=== PATIENT | male | born 1945 | race Caucasian/White ===

== ENCOUNTER 2016-11-30 07:50 | Inpatient (IN) | payer OTHER ==
--- NOTE | 2016-11-08 09:44 | PAT Medication Instructions ---
Service Date Nov 08, 2016. Current Home Medication List Budesonide/Formoterol Fumarate (Symbicort 80/4.5 Inhaler), 2 PUFFS INH BID Cinnamon (Cinnamon Extract), 1 CAP PO BID Ergocalciferol (Vitamin D), 50,000 UNITS PO Q2WKS Furosemide (Lasix), 40 MG PO QAM Garlic (Hm Garlic), 1 TAB PO QAM Glyburide (Glyburide), 10 MG PO BID Insulin Glargine (Lantus), 15 UNITS SC QPM Lisinopril (Zestril), 2.5 MG PO HS Metformin Hcl (Glucophage), 500 MG PO QIDM Nortriptyline Hcl (Pamelor), 75 MG PO HS Omeprazole (Prilosec), 20 MG PO BID Oxycodone Ir (Roxicodone Ir), 10 MG PO Q6H PRN for Pain Rosuvastatin Calcium (Crestor), 10 MG PO HS [Fiber Gummy], 1 TAB PO BID [Glargine Insulin], 10 UNITS SC QAM [Vitamin D Gummy], 1 TAB PO BID Medication Instructions For Your Scheduled Surgery - Hold the following medications 2 weeks prior to surgery: Cinnamon (Cinnamon Extract), 1 CAP PO BID - Hold the following medications 48 hours prior to surgery: Metformin Hcl (Glucophage), 500 MG PO QIDM - Hold the following medications the morning of surgery: [Vitamin D Gummy], 1 TAB PO BID [Fiber Gummy], 1 TAB PO BID Glyburide (Glyburide), 10 MG PO BID Garlic (Hm Garlic), 1 TAB PO QAM Furosemide (Lasix), 40 MG PO QAM Ergocalciferol (Vitamin D), 50,000 UNITS PO Q2WKS - Take the following medications the morning of surgery with a sip of water: Omeprazole (Prilosec), 20 MG PO BID Budesonide/Formoterol Fumarate (Symbicort 80/4.5 Inhaler), 2 PUFFS INH BID Oxycodone Ir (Roxicodone Ir), 10 MG PO Q6H PRN for Pain (okay to take up to 4 hours prior to surgery if needed) - Hold the following medications the morning of surgery with a sip of water: Lisinopril (Zestril), 2.5 MG PO HS - Take the following medications as scheduled the night before surgery: [Vitamin D Gummy], 1 TAB PO BID Insulin Glargine (Lantus), 15 UNITS SC QPM [Fiber Gummy], 1 TAB PO BID Glyburide (Glyburide), 10 MG PO BID Nortriptyline Hcl (Pamelor), 75 MG PO HS Omeprazole (Prilosec), 20 MG PO BID Rosuvastatin Calcium (Crestor), 10 MG PO HS Oxycodone Ir (Roxicodone Ir), 10 MG PO Q6H PRN for Pain Budesonide/Formoterol Fumarate (Symbicort 80/4.5 Inhaler), 2 PUFFS INH BID - For Insulin Dependent Diabetic patients: Test blood sugar A.M. of surgery. - If blood sugar greater than 150, take half of your regular dose of: [ Glargine Insulin],take 5 units - If blood sugar less than 150, do not take any: [Glargine Insulin], 10 UNITS SC QAM If you have any questions please call us at [phone] (Isidra Mistry PA-C) or [phone] or [phone]
[2016-11-08 10:42] LABS: BASO % 0.3 %; BASO ABS # 0.02 K/uL (0-0.2); COMPLETE YES; HEMATOCRIT 38.7 % (42-52); IG% 0.1 %; LYMPH % 20.8 %; LYMPH ABS # 1.56 K/uL (1.2-3.4); MEAN CELL VOLUME 87.8 fL (80-100); MEAN CORPUSCULAR HEMOGLOBIN 30.2 pg (25-34); MEAN CORPUSCULAR HGB CONC 34.4 g/dl (32-36); MEAN PLATELET VOLUME 9.9 fL (7.4-10.4); MONO % 6.7 %; NEUT % 70.1 %; PLATELET COUNT 271 K/uL (130-400); RED BLOOD COUNT 4.41 M/uL (4.7-6.1); WHITE BLOOD COUNT 7.49 K/uL (4.8-10.8)
[2016-11-08 11:27] LABS: BLOOD UREA NITROGEN 17 mg/dl (7-18); BUN/CREATININE RATIO 13.9 (10-20); CALCIUM 9.4 mg/dl (8.5-10.1); CARBON DIOXIDE 29 mmol/L (21-32); CHLORIDE 103 mmol/L (98-107); GLUCOSE 148 mg/dl (70-99); POTASSIUM 4.1 mmol/L (3.5-5.1); SODIUM 140 mmol/L (136-145)
--- NOTE | 2016-11-24 10:13 | HISTORY & PHYSICAL EXAMINATION ---
DATE OF ADMISSION: 11/30/2016 The patient presents to our office with a complaint of chronic back pain. He is status post lumbar decompression and fusion L4-S1 [place] [address] Delatorre. He reports he has been declining over the past year. Shopping will trigger his legs to go numb. Sitting alleviates his symptoms. Denies bowel or bladder dysfunction. There is no specific pain pattern. He occasionally ambulates with a cane. He also reports he has neuropathy that affects both feet. He takes hydrocodone and Neurontin for pain control. MEDICAL HISTORY: Significant for rheumatoid arthritis, osteoarthritis, sleep apnea, bleeding disorders, diabetes, peptic ulcer disease. SURGICAL HISTORY: Significant for hernia repair and spine surgery by Dr. Delatorre 2011. ALLERGIES: None listed. CURRENT MEDICATIONS: Include hydrocodone p.r.n., cyclobenzaprine 10 mg q. 8 hours p.r.n., furosemide 40 mg a day, glyburide 5 mg 2 tablets twice a day, lisinopril 5 mg twice a day, metformin 500 mg twice a day, nortriptyline 75 mg daily, omeprazole 20 mg twice a day, rosuvastatin 10 mg half a tablet daily, aspirin 81 mg daily, cod liver oil daily. SOCIAL HISTORY: He is . He is on disability. Alcohol is several cans of beer a day tobacco, he quit in 1983. REVIEW OF SYSTEMS: Significant for fatigue, weakness, weight loss, leg swelling, heat intolerance, poor coordination, difficulty walking, muscle weakness, frequent urination. PHYSICAL EXAMINATION: VITAL SIGNS: 5 foot 8, 225 pounds. HEENT: Speech appropriate. CARDIOPULMONARY: No gross abnormalities. ABDOMEN: Soft and nondistended. GENITOURINARY: Deferred. NEUROLOGIC: Cranial nerves II-XII grossly intact. MUSCULOSKELETAL: He has a well-healed lumbar incision. He ambulates with a stooped but steady gait. Lumbar extension reproduces back pain. Strength is intact bilateral lower extremities. No ankle clonus. Negative Babinski. ASSESSMENT: Foraminal stenosis L2-3, L3-4, possible facet cyst on the right at L2-3, severe central stenosis L3-4. PLAN: At this point in time, we have reviewed surgical intervention which would require removal of instrumentation L4-5, L5-S1; lumbar decompression of L2-3, L3-4, instrumented fusion of L2 through 4, possibly extending it down to S1. Risks, benefits, pros, cons, and alternatives were outlined in detail. He would like to proceed with the above-mentioned surgical intervention.
[2016-11-25 16:29] VITALS: BMI 33.0
[~2016-11-30] VITALS: Ht 175.3 cm; Wt 101.0 kg
[2016-11-30] VITALS (9 sets, daily range): BP systolic 95–135; BP diastolic 61–79; PULSE 83–91; TEMP 36.5–37; O2SAT 93–99; BMI 32.0
--- NOTE | 2016-11-30 07:35 | History & Physical Bridge Note ---
H&P Re-Evaluation Bridge Note: I have examined the patient, reviewed the History & Physical and in the interval since the performance of the History & Physical I have noted the following changes of clinical significance: No changes noted
[~2016-11-30 07:50] MED LIST: CEFAZOLIN 1000MG/55 ML D5W IV SCH; CINN500C13 PO; CRS/10 PO; FIBER GUMMY PO; FURO40TA3 PO; GARL1TAB13 PO; GLARGINE INSULIN SC; GLC/500 PO; INSDGI SC; LACTATED RINGER'S 1000ML 1,000 ML IV SCH; LISI-729 PO; MCR5 PO; NORT75CA PO; OMEP10CA2 PO; OXYC1TAB3 PO; SYMIN/8045 INH; VITAMIN D GUMMY PO; VTMD PO
[2016-11-30] MEDS ORDERED: GLYCOPYRROLATE INJ 0.2 MG/ML VIAL ONE ×2 (08:44→12:51)
[2016-11-30] MEDS ORDERED: DEXAMETHASONE SOD INJ 4 MG/ML VIAL ONE (08:44)
[2016-11-30] MEDS ORDERED: PROPOFOL IV EMULSION 10 MG/ML 20 ML VIAL IV ONE ×2 (08:44→12:51)
[2016-11-30] MEDS ORDERED: NEOSTIGMINE METHYLSULFATE 1 MG/ML 10ML VIAL ONE (08:44)
[2016-11-30] MEDS ORDERED: ROCURONIUM BROMIDE 10 MG/ML 5 ML VIAL ONE (08:44)
[2016-11-30] MEDS ORDERED: ONDANSETRON INJ 2 MG/ML 2 ML VIAL ONE (08:44)
[2016-11-30] MEDS ORDERED: LIDOCAINE HCL 2% 2 ML VIAL (20MG/ML) ONE (08:44)
[2016-11-30] MEDS ORDERED: albuterol inhaler INH (08:45)
[2016-11-30] MEDS ORDERED: MIDAZOLAM HCL 1 MG/ML 2ML VIAL ONE (08:45)
[2016-11-30] MEDS ORDERED: FENTANYL CITRATE INJ 50 MCG/1 ML 2 ML VIAL ONE (08:45)
[2016-11-30] MEDS ORDERED: LACTATED RINGER'S 1000ML 1,000 ML IV PRN (10:10)
[2016-11-30] MEDS ORDERED: ONDANSETRON INJ 2 MG/ML 2 ML VIAL IV PRN ×2 (10:15→13:00)
[2016-11-30] MEDS ORDERED: MoRPHine SULFATE 10 MG/ML CARP/VIAL IV PRN (10:15)
[2016-11-30] MEDS ORDERED: SODIUM CHLORIDE 0.9% 1000ML 1,000 ML IV SCH (12:52)
--- NOTE | 2016-11-30 12:52 | [facility] Post Operative Brief Note ---
Immediate Operative Summary Operative Date Nov 30, 2016. Pre-Operative Diagnosis Foraminal stenosis L2-3, L3-4, possible facet cyst on the right at L2-3, severe central stenosis L3-4. Post-Operative Diagnosis Foraminal stenosis L2-3, L3-4, possible facet cyst on the right at L2-3, severe central stenosis L3-4. Procedure(s) Performed L4-L5, L5-S1 Removal of Retained Hardware; Revision Lumbar Decompression/Laminectomy Decompression L2-L3, L3-L4 Fusion L2-L4; Pedicle Screw Fixation; Placement of an Interbody Device; Bone Graft Application Allograft in the Lateral Gutters; Bone Morphogenetic Protein Application Surgeon Dr. Hector Delatorre Emt Dispatcher Surgeon(s) Supriya Montesinos PA-C Estimated Blood Loss 600mL Findings stenosis Specimens Specimen A. Explanted spine hardware
[2016-11-30] MEDS ORDERED: FLOSEAL HEMOSTATIC MATRIX 10ML TOP ONE (12:54)
[2016-11-30] MEDS ORDERED: BACITRACIN 50000 UNIT VIAL IR ONE (12:54)
[2016-11-30] MEDS ORDERED: BUPIVACAINE/EPINEPHRINE 0.5% MPF 1:200,000 30 ML VIAL INJ ONE (12:54)
[2016-11-30] MEDS ORDERED: THROMBIN 20,000 UNITS (RECOMBINANT) TOP ONE (12:56)
[2016-11-30] MEDS ORDERED: DO NOT ADMINISTER PNEUMOCOCCAL VACCINE PRN ×2 (13:00)
[2016-11-30] MEDS ORDERED: DO NOT ADMINISTER FLU VACCINE PRN ×3 (13:00)
[2016-11-30] MEDS ORDERED: PROMETHAZINE HCL INJ 12.5 MG in SODIUM CHLORIDE 0.9% 50ML 50 ML IV PRN (13:00)
[2016-11-30] MEDS ORDERED: LORAZEPAM INJ 0.5 MG in SYRINGE 0 ML IV PRN (13:00)
[2016-11-30] MEDS ORDERED: MAGNESIUM HYDROXIDE SUSP 30 ML UDC PO PRN (13:00)
[2016-11-30] MEDS ORDERED: NALOXONE HCL 0.4 MG/1 ML VIAL/CARP IV PRN ×2 (13:00)
[2016-11-30] MEDS ORDERED: SOD PHOSPHATE/SOD BIPHOSPHATE ENEMA 132 ML BTL PR PRN (13:00)
[2016-11-30] MEDS ORDERED: BISACODYL 10 MG SUPP PR PRN (13:00)
[2016-11-30] MEDS ORDERED: ACETAMINOPHEN IV 100 ML IV PRN (13:00)
[2016-11-30] MEDS ORDERED: LORAZEPAM 0.5 MG TAB PO PRN (13:00)
[2016-11-30] MEDS ORDERED: hydrOXYzine HCL 25 MG TAB PO PRN (13:00)
[2016-11-30] MEDS ORDERED: ALUMINUM/MAGNESIUM SUSP 30 ML UDC PO PRN (13:00)
[2016-11-30] MEDS ORDERED: ACETAMINOPHEN 500 MG TAB PO PRN (13:00)
[2016-11-30] MEDS ORDERED: METOCLOPRAMIDE HCL INJ 5 MG/ML 2 ML VIAL IV PRN (13:00)
[2016-11-30] MEDS ORDERED: FAMOTIDINE 20 MG TAB PO PRN (13:00)
--- NOTE | 2016-11-30 13:02 | DIAGNOSTIC IMAGING REPORT ---
INTRAOPERATIVE FLUOROSCOPIC IMAGES OF THE LUMBAR SPINE CLINICAL HISTORY: REMOVAL OF HARDWARE/DECOMPRESSION/FUSION/INTERBODY COMPARISON STUDY: Fluoroscopic images of the lumbar spine September 10, 2012. Fluoroscopy time: 10 seconds. FINDINGS: 2 fluoroscopic images were obtained. Localization is not possible given partial visualization of the lumbar spine. A decompression with 3 level pedicle screw fusion is noted with interconnecting rods. IMPRESSION: Fluoroscopic images demonstrating a lumbar spine decompression and fusion. Electronically signed by: Gene Hutchison M.D. 11/30/2016 1:00 PM Dictated Date/Time: 11/30/2016 12:59 PM
--- NOTE | 2016-11-30 13:08 | OPERATIVE REPORT ---
DATE OF OPERATION: 11/30/2016 PREOPERATIVE DIAGNOSIS: Spinal stenosis. POSTOPERATIVE DIAGNOSIS: Same. PROCEDURE PERFORMED: 1. Removal of posterior segmental instrumentation L4-L5 and L5-S1. 2. Exploration of fusion L4-L5 and L5-S1. 3. Lumbar decompression, medial facetectomies, foraminotomies L2-L3, L3-L4. 4. Posterior spinal fusion L2-3, L3-4. 5. Placement of posterior segmental instrumentation using Orthros rods and screws L2-L3, L3-L4. 6. Placement of locally harvested morselized autograft posterior gutters. 7. Placement of Infuse collagen sponge combined with Mastergraft in the posterior gutters L2-L3, L3-L4. SURGEON: Dr. Hector Delatorre. DIRECTOR OF TAX SERVICES: Supriya Varela PA-C. Due to the complex nature of the procedure, the entire surgery was performed with the spa assistant manager of Supriya Varela PA-C. The physician assistant psychiatry, under direct supervision, was involved in the actual performance of all aspects of the surgical procedure including hemostasis, tissue retraction and incision, instrument management, patient positioning, and wound closure. ANESTHESIA: General. DISPOSITION: The patient awakened and taken to PACU in stable condition. HISTORY OF PATIENT'S PROBLEMS: This is a 71-year-old male that presents with the above-mentioned diagnosis. After failing an extensive course of nonoperative care, elected to undergo the above-mentioned procedure. Risks, benefits, pros, cons, and alternatives were outlined in detail preoperatively. OPERATION AND FINDINGS: PROCEDURE: The patient was met with preoperatively, case discussed and all questions were addressed. At that point the patient was taken back to operative suite and after undergoing successful general endotracheal intubation by department of anesthesia was placed in prone position on Xavier table atop Negro frame. All bony prominences were padded and the eyes were inspected to ensure there was no external pressure placed upon them. At this point, lumbar spine was prepped and draped in normal sterile fashion. Sharp dissection with the assistance of Bovie cautery performed down to and exposing the lamina and transverse processes of 2, 3, instrumentation at the 4, 5 and S1 levels bilaterally. I then removed the hardware bilaterally exploring the fusion mass noting it to be intact. I then performed a complete laminectomy of 3 and 2 addressing severe lateral recess and foraminal stenosis. Pedicle screws were then placed in L2, 3, and 4 bilaterally with assistance of fluoroscopy and appropriate size jerrell locked into position. The transverse processes of 2, 3, 4 burred to subcortical bone. Infuse collagen sponge combined with Mastergraft and locally harvested morcellized autograft was placed in the posterior gutters. A 7 flat RAY drain was inserted. Incision was closed with 1-0 Vicryl in the fascia, 2-0 Vicryl subcutaneously, 4-0 Monocryl for final skin closure. Steri-Strips and sterile dressing placed. I attest to the content of the Intraoperative Record and any orders documented therein. Any exceptio ns are noted below.
[2016-11-30] MEDS ORDERED: HYDROmorphone HCL 0.5MG/ML 50 ML CASSETTE ONE (13:18)
[2016-11-30] MEDS ORDERED: PHARMACY GLYCEMIC MGMT CONSULT PRN (13:32)
[2016-11-30] MEDS: FENTANYL CITRATE INJ 50 MCG/1 ML 2 ML VIAL IV PRN ×4 (13:33→13:48)
[2016-11-30] MEDS ORDERED: DEXTROSE 50% 50 ML SYR IV PRN (14:00)
[2016-11-30] MEDS ORDERED: GLUCOSE 10 TABS/TUBE PO PRN (14:00)
[2016-11-30] MEDS ORDERED: GLUCAGON FOR INJ 1 MG VIAL SQ PRN (14:00)
[2016-11-30] MEDS ORDERED: GLUCOSE 40% GEL 15 GM TUBE PO PRN (14:00)
--- NOTE | 2016-11-30 14:19 | Pharmacy Progress Note ---
Glycemic Control Intl Consult Date of Service Nov 30, 2016. Scope Glycemic Pharmacist consulted by Dr Delatorre on 11/30/16 for glycemic control and to write orders per [facility] inpatient glycemic control protocol Objective Weight (Kilograms): 101.00 Accuchecks BSG (last 24hrs): Test 11/30/16 09:10 11/30/16 13:37 Bedside Glucose 129 mg/dl (70-99) 178 mg/dl (70-99) HbA1c pending 12/01/16 Recent Pertinent Medications Outpatient Anti-diabetic Regimen: * Lantus 15 units hs, glyburide 10 mg bid, metformin 500 mg qidm * A1c = pending 12/01/16 The patient is currently receiving: * Basal insulin: Lantus 10 units at home yesterday evening * Correctional Insulin: none * Prandial insulin: none * Oral Agents: glyburide 10 mg bid Risk Factors for Insulin Resistance: * Steroids: dexamethasone 8 mg in OR @0845, then 6 mg q8h x 3 doses * Infection: no, cefazolin perioperatively * Pressors: no * IVF: LR @ 150 ml/hr * Recent Surgery: OR today-spinal surgery * Diet: npo, advancing to regular- change to type 2 diabetic * Mechanical Ventilation: no Assessment & Plan ASSESSMENT: * ADA & AACE recommend a goal blood sugar range 140-180 mg/dl for the majority of critically ill & non-critically ill patients. However, more stringent targets may be selected in individual cases. * 71 yo type 2 diabetic S/P spinal surgery. A1c pending to assess recent glycemic control. BSG's expected to rise due to stress of surgery and perioperative steroids. Effect of dexamethasone may persist for 48-72 hr. Will hold po antidiabetic meds, start Lantus at 20% less than home dose, and add weight-based Novolog coverage. Change diet to type 2 diabetic. PLAN FOR INPATIENT GLYCEMIC CONTROL: * Holding outpatient oral diabetes medications * Basal insulin with LANTUS 12 units SQ hs, give 1/2 dose (6 units) if BSG is less than 110 * Correctional Insulin with NOVOLOG per scale ACHS or Q6hrs while NPO * Goal Range: Low 110 mg/dL - High 150 mg/dL * Correction Factor: 25 mg/dL/unit * Nutritional / Prandial insulin per carb ratio of 1 unit per 8 grams CHO consumed * Please note that the plan above was derived based on current level of insulin resistance and hospital stress. These recommendations are appropriate for inpatient admission only. Plan of care upon discharge will need to be reassessed to avoid potential outpatient hypo/hyperglycemia. Thank you.
[2016-11-30] MEDS: HYDROmorphone HCL 0.5MG/ML 50 ML CASSETTE IV PRN ×3 (14:26→22:58)
--- NOTE | 2016-11-30 15:24 | Anesthesiology Progress Note ---
Anesthesia Post Op Note Date & Time Nov 30, 2016 at 15:23 Vital Signs Pain Intensity: 0.0 Vital Signs Past 12 Hours Date Time Temp Pulse Resp B/P Pulse Ox O2 Delivery O2 Flow Rate FiO2 11/30/16 15:19 36.5 86 18 108/66 97 Nasal Cannula 3.0 11/30/16 14:50 84 16 122/75 95 Nasal Cannula 3.0 11/30/16 14:47 95 Nasal Cannula 4.0 11/30/16 14:20 95 Nasal Cannula 4.0 11/30/16 14:20 36.7 91 18 114/71 95 Nasal Cannula 4.0 11/30/16 14:20 36.7 91 16 114/71 95 Nasal Cannula 3.0 11/30/16 14:10 87 16 97 11/30/16 14:10 87 16 11/30/16 14:08 126/65 11/30/16 14:05 87 15 11/30/16 14:05 87 15 97 11/30/16 14:03 116/67 11/30/16 14:00 85 14 97 11/30/16 14:00 86 14 11/30/16 13:58 128/68 11/30/16 13:55 84 7 11/30/16 13:55 84 7 96 11/30/16 13:54 36.5 11/30/16 13:51 85 16 99 11/30/16 13:51 85 16 11/30/16 13:49 109/72 11/30/16 13:46 81 13 100 11/30/16 13:46 81 13 11/30/16 13:43 121/64 11/30/16 13:41 83 14 100 11/30/16 13:41 83 14 11/30/16 13:38 122/70 11/30/16 13:36 86 17 100 11/30/16 13:36 86 17 11/30/16 13:33 116/66 11/30/16 13:31 86 16 11/30/16 13:31 86 16 100 11/30/16 13:29 109/26 11/30/16 13:26 88 15 11/30/16 13:26 88 15 100 11/30/16 13:25 108/60 11/30/16 13:16 79 16 91/37 100 Mask 10 11/30/16 08:25 36.8 83 20 135/79 99 Room Air Notes Mental Status: alert / awake / arousable, participated in evaluation Pt Amnestic to Procedure: Yes Nausea / Vomiting: adequately controlled Pain: adequately controlled Airway Patency, RR, SpO2: stable & adequate BP & HR: stable & adequate Hydration State: stable & adequate Anesthetic Complications: no major complications apparent
[2016-11-30] MEDS: LACTATED RINGER'S 1000ML 1,000 ML IV SCH ×2 (16:17→20:13)
[2016-11-30] MEDS: CEFAZOLIN IV 2,000 MG in DEXTROSE 5% 50ML 50 ML IV SCH (17:45)
[2016-11-30] MEDS: DEXAMETHASONE INJ 6 MG in SYRINGE 0 ML IV SCH (17:45)
[2016-11-30] MEDS: INSULIN ASPART 100 UNITS/ML 3 ML PEN SC SCH ×2 (17:50→20:38)
[2016-11-30] MEDS: BUDESONIDE/FORMOTEROL FUMARATE 80/4.5 60 PUFFS/INHALER INH SCH (20:31)
[2016-11-30] MEDS: NORTRIPTYLINE HCL 25 MG CAP PO SCH (20:32)
[2016-11-30] MEDS: ROSUVASTATIN CALCIUM 10 MG TAB PO SCH (20:32)
[2016-11-30] MEDS: PANTOprazole SOD 40 MG TAB PO SCH (20:32)
[2016-11-30] MEDS: LISINOPRIL 2.5 MG TAB PO SCH (20:32)
[2016-11-30] MEDS: DOCUSATE SODIUM/SENNA 50/8.6MG TAB PO SCH (20:33)
[2016-11-30] MEDS: INSULIN GLARGINE SOLOSTAR 100 UNITS/ML 3 ML PEN SC SCH (20:39)
[2016-12-01] VITALS (7 sets, daily range): BP systolic 106–127; BP diastolic 66–72; PULSE 82–102; TEMP 36.3–37; O2SAT 92–95
[2016-12-01] MEDS: DEXAMETHASONE INJ 6 MG in SYRINGE 0 ML IV SCH ×2 (02:02→09:46)
[2016-12-01] MEDS: CEFAZOLIN IV 2,000 MG in DEXTROSE 5% 50ML 50 ML IV SCH (02:02)
[2016-12-01] MEDS: LACTATED RINGER'S 1000ML 1,000 ML IV SCH (02:03)
[2016-12-01 05:49] LABS: BASO % 0.1 %; BASO ABS # 0.01 K/uL (0-0.2); HEMATOCRIT 25.6 % (42-52); IG% 0.4 %; LYMPH % 4.2 %; LYMPH ABS # 0.48 K/uL (1.2-3.4); MEAN CELL VOLUME 86.8 fL (80-100); MEAN CORPUSCULAR HEMOGLOBIN 29.5 pg (25-34); MEAN PLATELET VOLUME 9.2 fL (7.4-10.4); MONO % 4.3 %; PLATELET COUNT 298 K/uL (130-400); RED BLOOD COUNT 2.95 M/uL (4.7-6.1); WHITE BLOOD COUNT 11.41 K/uL (4.8-10.8)
[2016-12-01] MEDS ORDERED: DC PCA SCH (06:00)
[2016-12-01] MEDS ORDERED: HYDROmorphone INJ 0.5 MG/0.5 ML SYR IV PRN (06:00)
[2016-12-01 06:15] LABS: CALCIUM 8.4 mg/dl (8.5-10.1); CREATININE 1.2 mg/dl (0.60-1.40); POTASSIUM 4.7 mmol/L (3.5-5.1)
[2016-12-01 06:23] LABS: COMPLETE YES
[2016-12-01 06:40] LABS: ESTIMATED AVERAGE GLUCOSE 151 mg/dl; HA1C FLAG Normal (Normal)
[2016-12-01] MEDS ORDERED: NURSING VERBAL MED ORDER ONE (07:15)
--- NOTE | 2016-12-01 07:52 | Anesthesiology Progress Note ---
Anesthesia Post Op Note Date & Time Dec 01, 2016 at 07:51 Vital Signs Pain Intensity: 4.0 Vital Signs Past 12 Hours Date Time Temp Pulse Resp B/P Pulse Ox O2 Delivery O2 Flow Rate FiO2 12/01/16 06:58 36.7 91 16 106/69 92 Room Air 12/01/16 03:48 37.0 84 16 111/66 92 Room Air 11/30/16 23:30 Nasal Cannula 2.0 11/30/16 23:17 37.0 85 16 120/72 93 Room Air Notes Mental Status: alert / awake / arousable, participated in evaluation Pt Amnestic to Procedure: Yes Nausea / Vomiting: adequately controlled Pain: adequately controlled Airway Patency, RR, SpO2: stable & adequate BP & HR: stable & adequate Hydration State: stable & adequate Anesthetic Complications: no major complications apparent
--- NOTE | 2016-12-01 08:35 | PROGRESS NOTE ---
DATE: 12/01/2016 Postop day 1. Back pain controlled. Leg pain improved. Vital signs stable. T-max 37.0. RAY drained 190 mL. Hematocrit this a.m. is 25.6. PHYSICAL EXAMINATION: The patient is sitting in bed, has good strength to testing. Appears comfortable. ASSESSMENT: Status post lumbar decompression and fusion. PLAN: At this time, will initiate physical therapy, advance his bowel regimen and hopefully discharge home this weekend.
[2016-12-01] MEDS: BUDESONIDE/FORMOTEROL FUMARATE 80/4.5 60 PUFFS/INHALER INH SCH ×2 (08:40→21:36)
[2016-12-01] MEDS: PANTOprazole SOD 40 MG TAB PO SCH ×2 (08:40→22:02)
[2016-12-01] MEDS: INSULIN ASPART 100 UNITS/ML 3 ML PEN SC SCH ×3 (09:06→21:35)
--- NOTE | 2016-12-01 09:14 | Clinical Documentation Query ---
JAMIE Camacho : CLINICAL DOCUMENTATION QUERY Patient is a 71 year old male who on 11/30 underwent removal of prior lumbosacral instrumentation, decompression, and posterior fusion of L2-3, L3-4. Preoperative hemoglobin and hematocrit were 13.3 g/dl and 38.7%. POD #1, repeat values are 8.7 g/dl and 25.6%. EBL for the procedure was 600 ml's with subsequently documented losses totaling an additional 440 ml's to date. Additionally, net I/O is positive for 1473 ml's to date. She is being monitored with serial hematology and I/O including drain outputs. In your clinical opinion is this patient being managed for: ( ) Acute blood loss and hemodilutional anemia ( ) Other explanation of clinical findings (Please Explain) ( ) Unable to determine (Please Define) ( ) Need to Discuss ( ) Not Agree The medical record reflects the following clinical findings, treatment, and risk factors. Clinical Indicators: As above Treatment:She is being monitored with serial hematology and I/O including drain outputs. Risk Factors: Acute perioperative blood losses, IVF administration Please clarify and document your clinical opinion in the progress notes and discharge summary. Terms such as "probable", "suspected", "likely", "questionable", "possible", or "still to be ruled out" are acceptable. IF IN AGREEMENT, YOU MUST DOCUMENT ABOVE DIAGNOSTIC STATEMENT IN DAILY PROGRESS NOTES AND DISCHARGE SUMMARY. This document is not part of the patient's record. Thank You, Lev Rodriguez, ASHLEY [phone]
[2016-12-01] MEDS ORDERED: INSULIN ASPART 100 UNITS/ML 3 ML PEN SC ONE ×2 (12:00→12:30)
--- NOTE | 2016-12-01 12:51 | Pharmacy Progress Note ---
Glycemic Control: Progress Nt Date of Service Dec 01, 2016. Scope Glycemic Pharmacist consulted by Dr Delatorre on 11/30/16 for glycemic control and to write orders per [facility] inpatient glycemic control protocol. Objective Accuchecks BSG (last 24hrs): Test 11/30/16 13:37 11/30/16 16:50 11/30/16 20:26 12/01/16 05:30 Bedside Glucose 178 mg/dl (70-99) 234 mg/dl (70-99) 252 mg/dl (70-99) Random Glucose 244 mg/dl (70-99) Laboratory Data (last 24hrs) Test 12/01/16 05:30 12/01/16 05:35 Anion Gap 9.0 mmol/L BUN/Creatinine Ratio 13.0 Blood Urea Nitrogen 16 mg/dl Creatinine 1.20 mg/dl Hemoglobin A1c 6.9 % Potassium Level 4.7 mmol/L Sodium Level 136 mmol/L White Blood Count 11.41 K/uL Red Blood Count 2.95 M/uL Hemoglobin 8.7 g/dL Hematocrit 25.6 % Mean Corpuscular Volume 86.8 fL Mean Corpuscular Hemoglobin 29.5 pg Mean Corpuscular Hemoglobin Concent 34.0 g/dl Platelet Count 298 K/uL Mean Platelet Volume 9.2 fL Neutrophils (%) (Auto) 91.0 % Lymphocytes (%) (Auto) 4.2 % Monocytes (%) (Auto) 4.3 % Eosinophils (%) (Auto) 0.0 % Basophils (%) (Auto) 0.1 % Neutrophils # (Auto) 10.39 K/uL Lymphocytes # (Auto) 0.48 K/uL Monocytes # (Auto) 0.49 K/uL Eosinophils # (Auto) 0.00 K/uL Basophils # (Auto) 0.01 K/uL HbA1c: Test 12/01/16 05:30 Hemoglobin A1c 6.9 % (4.5-5.6) H Recent Pertinent Medications Outpatient Anti-diabetic Regimen: * Lantus 15 units hs, glyburide 10 mg bid, metformin 500 mg qidm * A1c = 6.9% 12/01/16 The patient is currently receiving: * Basal insulin: Lantus 12 units hs, give 1/2 dose if BSG is less than 110 * Correctional Insulin: Novolog per protocol ACHS Goal range 110-150 mg/dl Correction factor 25 mg/dl/unit * Prandial insulin: per carb ratio of 1 unit per 8 Gm CHO consumed * Oral Agents: none Risk Factors for Insulin Resistance: * Steroids: dexamethasone 8 mg in OR 11/30 @0845, then 6 mg q8h x 3 doses, last dose given 12/01 @0946 * Infection: no * IVF: LR @ 150 ml/hr- now dc'd * Recent Surgery: POD#1-spinal surgery * Diet: type 2 diabetic Assessment & Plan ASSESSMENT: * ADA & AACE recommend a goal blood sugar range 140-180 mg/dl for the majority of critically ill & non-critically ill patients. However, more stringent targets may be selected in individual cases. 11/30/16 * 71 yo type 2 diabetic S/P spinal surgery. A1c pending to assess recent glycemic control. BSG's expected to rise due to stress of surgery and perioperative steroids. Effect of dexamethasone may persist for 48-72 hr. Will hold po antidiabetic meds, start Lantus at 20% less than home dose, and add weight-based Novolog coverage. Change diet to type 2 diabetic. 12/01/16 * Patient received 27 units of insulin on 11/30. BSG's ranged 234-386 over past 24 hr. -high mainly due to steroid. Patient well-controlled past few months ( A1c 6.9%) on Lantus and oral meds, so do not want to give large doses of insulin. Stacking may lead to lower BSG at suppertime. Will tighten carb ratio slightly, and give extra IV insulin bolus if BSG is still over 250 at pre- supper check. Will reassess in am. PLAN FOR INPATIENT GLYCEMIC CONTROL: * Basal insulin with LANTUS 12 units SQ hs, give 1/2 dose (6 units) if BSG is less than 110 * Correctional Insulin with NOVOLOG per scale ACHS or Q6hrs while NPO * Goal Range: Low 110 mg/dL - High 150 mg/dL * Correction Factor: 25 mg/dL/unit * Nutritional / Prandial insulin per carb ratio of 1 unit per 7 grams CHO consumed * Please note that the plan above was derived based on current level of insulin resistance and hospital stress. These recommendations are appropriate for inpatient admission only. Plan of care upon discharge will need to be reassessed to avoid potential outpatient hypo/hyperglycemia. Thank you.
[2016-12-01] MEDS ORDERED: INSULIN HUMAN REGULAR IV BOLUS 3 UNIT in SYRINGE 0 ML IV ONE (17:15)
[2016-12-01] MEDS: INSULIN GLARGINE SOLOSTAR 100 UNITS/ML 3 ML PEN SC SCH (21:34)
[2016-12-01] MEDS: ROSUVASTATIN CALCIUM 10 MG TAB PO SCH (22:02)
[2016-12-01] MEDS: DOCUSATE SODIUM/SENNA 50/8.6MG TAB PO SCH (22:02)
[2016-12-01] MEDS: NORTRIPTYLINE HCL 25 MG CAP PO SCH (22:02)
[2016-12-01] MEDS: LISINOPRIL 2.5 MG TAB PO SCH (22:03)
[2016-12-02] MEDS: POLYETHYLENE (MIRALAX) 17 GM PACK PO SCH ×4 (05:50→23:45)
[2016-12-02] MEDS: OXYCODONE HCL IR 5 MG TAB (IMMEDIATE RELEASE) PO PRN ×3 (05:51→17:24)
[2016-12-02 06:19] VITALS: BP 119/73; PULSE 68; TEMP 36.6; O2SAT 97
[2016-12-02] MEDS: PANTOprazole SOD 40 MG TAB PO SCH ×2 (06:49→20:52)
[2016-12-02] MEDS: BUDESONIDE/FORMOTEROL FUMARATE 80/4.5 60 PUFFS/INHALER INH SCH ×2 (06:49→20:53)
[2016-12-02] MEDS: INSULIN ASPART 100 UNITS/ML 3 ML PEN SC SCH ×4 (07:39→20:57)
[2016-12-02] MEDS ORDERED: RXC5 PO (07:50)
--- NOTE | 2016-12-02 07:51 | Discharge Instructions ---
Discharge Instructions Admission Reason for Admission: Lumbar Spinal Stenosis Discharge Discharge Diagnosis / Problem: stenosis Discharge Goals Goal(s): Improve function Activity Recommendations Activity Limitations: per Instructions/Follow-up section . Instructions / Follow-Up Instructions / Follow-Up ACTIVITY RECOMMENDATIONS: SELF CARE INSTRUCTIONS AFTER THORACIC/LUMBAR FUSIONS 1. You may walk to your tolerance. It is good exercise for your legs and back. Expect some back and intermittent leg aches and pains. 2. You may perform "counter-top" level activities (make a sandwich, sally with a project, etc.). 3. No bending or lifting of more than 10 pounds or back twisting of any nature (roll like a log when turning in bed). 4. You may ride in a car for 20-30 minutes at a time. No driving until after your first visit with your doctor. 5. Frequent changes of position and restricting sitting to 30 minutes at a time will help limit the amount of back spasms and stiffness you may experience. 6. You may discontinue the use of ambulatory aids (cane, crutches, etc.) once your strength and confidence allow. 7. You may watchstander the shower and let water strike your incision when you arrive home at least once daily. Do not take a tub bath, sit in a hot tub or go into a swimming pool until after your first recheck in the office. SPECIAL CARE INSTRUCTIONS: VERY IMPORTANT TO READ AND REVIEW A. Your surgical incision has been closed with a cosmetic suture under the skin that will dissolve in about 6 weeks. In 14 days, you can use a pair of clean scissors and cut the suture that is left outside of the skin at the ends of your incision. 1. The small skin tapes can be removed 7 days after surgery if they have not fallen off by that point. 2. You may keep the wound open to air as much as possible to promote healing after post-op day number 5 unless told otherwise by your doctor. 3. If you think the wound looks like it is becoming infected (redness or worsening drainage) and/or you are experiencing fever, chill or worsening back pain and muscle spasms, contact the office so that we may evaluate you as soon as possible. B. Complications are uncommon, but please contact us if you have any signs or symptoms of: 1. wound infection (fever higher than 102.5 degrees F, redness, separation of wound, drainage, or increasing pain from the incision) 2. blood clots in legs (pain, swelling, redness and warmth in legs) 3. urinary tract infection (fever higher than 102.5 degrees F, burning upon urination or increased frequency of urination) 4. nerve problems (inability to walk on your toes or heels, numbness, loss of bowel or bladder control) 5. any other symptoms that concern you C. Please call the office at if you have any concerns or questions about your operation or recovery. D. No smoking! Smoking drastically decreases the chance of a solid fusion. E. Do not take any anti-inflammatory medications (Indocin, Advil, Motrin, Aspirin, Naprosyn, etc.) as these may inhibit the chance of a solid fusion. Tylenol is okay to take for pain. MANAGING PAIN AFTER SPINAL SURGERY 1. Narcotic medication is intended for short-term use and will be provided for surgical pain. Surgical pain usually lasts for a period of 4-6 weeks. Narcotic medication includes Percocet, Vicodin, Darvocet, Tylenol #3 or Lortab. 2. Longer-term pain is more appropriately treated with non-narcotic medication such as Tylenol ES. 3. Muscle spasm is not appropriately treated with narcotics. Muscle relaxers such as Soma, Flexeril or Skelaxin can be used along with Tylenol ES. 4. Remember that we all live with some "aches and pains". This is not unusual or uncommon after an injury or as we get older. a. Back pain is expected and may include muscle spasms for 4 to 6 weeks after surgery. The pain should gradually improve. If the pain worsens for no apparent reason, please contact the office. b. Intermittent leg pain may also be experienced and should not be concerned about unless it worsens for no apparent reason. If so, please contact the office. 5. We will provide appropriate medication within the normal guidelines of their prescribed use. We will also be very cautious and aware of potential abuse and extended duration of patients' medication needs. a. Pain medications are for your comfort and to assist with sleep and rest so that the tissue can heal. They are not provided in order to return to normal activity and should not be used through the day. To do so or worsening pain at night can result from ongoing tissue damage and development of tolerance to the prescribed medicine. 6. Please allow 2-3 days to process refills. Prescriptions will not be mailed but must be picked up at the office. FOLLOW UP VISIT: Keep your scheduled follow-up appointment. Any questions, please call the office at . Current Hospital Diet Patient's current hospital diet: Regular Diet, Diabetes Type 2 Diet Discharge Diet Recommended Diet: Regular Diet Procedures Procedures Performed: L4-L5, L5-S1 Removal of Retained Hardware; Revision Lumbar Decompression/Laminectomy Decompression L2-L3, L3-L4 Fusion L2-L4; Pedicle Screw Fixation; Placement of an Interbody Device; Bone Graft Application Allograft in the Lateral Gutters; Bone Morphogenetic Protein Application Pending Studies Studies pending at discharge: no Laboratory Results Hemoglobin A1c Test 12/01/16 05:30 Range/Units Estimated Average Glucose 151 mg/dl Hemoglobin A1c 6.9 H 4.5-5.6 % Medical Emergencies . Who to Call and When: Medical Emergencies: If at any time you feel your situation is an emergency, please call 911 immediately. . Non-Emergent Contact Non-Emergency issues call your: Primary Care Provider . "Provider Documentation" section prepared by Hector Delatorre. VTE Core Measure Inpt VTE Proph given/why not?: Perry Cummins, SCD's
[2016-12-02 08:13] LABS: HEMATOCRIT 25.2 % (42-52)
[2016-12-02 11:20] VITALS: Ht 175.3 cm; Wt 101.0 kg
--- NOTE | 2016-12-02 13:34 | PROGRESS NOTE ---
DATE: 12/02/2016 DATE: 12/02/2016. SUBJECTIVE: Postop day 2. Back pain controlled. Leg pain markedly improved. Vital signs stable. T-max 36.6. RAY drained 40 mL. Hematocrit 25.2. OBJECTIVE: On exam the patient is in chair, was able to stand and ambulate about the room while we had our discussion today. He demonstrates good strength to testing bilateral extremities. ASSESSMENT: Status post multilevel lumbar decompression and fusion. PLAN: At this time, he is progressing nicely. We anticipate possible discharge home tomorrow.
[2016-12-02 15:38] VITALS: BP 105/67; PULSE 78; TEMP 36.6; O2SAT 95
--- NOTE | 2016-12-02 16:14 | Pharmacy Progress Note ---
Glycemic: Assessment & Plan Date of Service Dec 02, 2016. Assessment & Plan The patient received 70 units of insulin on 12/01. BSGs ranging 230-346 mg/dl over the past 24hrs. Trending down as steroid effect wears off. Will increase basal to home dose. * Basal insulin: Lantus 15 units every hs, give 1/2 dose (7 units) if BSG is less than 110 * Correctional Insulin: Novolog Correction per scale ACHS Goal Range: Low 110 mg/dL - High 150 mg/dL Correction Factor: 25 mg/dL/unit * Prandial insulin: Per carb ratio of 1 unit per 7 grams CHO consumed BSGs continue to improve, no other changes needed to inpatient regimen at this time. Pharmacy will continue to monitor patient daily and write orders per [facility] inpatient glycemic control protocol. Thanks. DISCHARGE RECOMMENDATION: Since patient was well-controlled prior to admission (A1c of 6.9% in 71 yo), consider previous regimen of Lantus 15 units hs, glyburide 10 mg bidm, metformin 500 mg qid w/meals. He should followup with outpatient provider for dosage adjustment. * Please note that the plan above was derived based on current level of insulin resistance and hospital stress. These recommendations are appropriate for inpatient admission only. Plan of care upon discharge will need to be reassessed to avoid potential outpatient hypo/hyperglycemia.
[2016-12-02] MEDS: HYDROmorphone INJ 1 MG/ML SYR IV PRN ×2 (18:30→18:50)
[2016-12-02] MEDS: LISINOPRIL 2.5 MG TAB PO SCH (20:52)
[2016-12-02] MEDS: ROSUVASTATIN CALCIUM 10 MG TAB PO SCH (20:52)
[2016-12-02] MEDS: DOCUSATE SODIUM/SENNA 50/8.6MG TAB PO SCH (20:52)
[2016-12-02] MEDS: NORTRIPTYLINE HCL 25 MG CAP PO SCH (20:52)
[2016-12-02] MEDS ORDERED: INSULIN GLARGINE SOLOSTAR 100 UNITS/ML 3 ML PEN SC SCH (21:00)
[2016-12-02 23:06] VITALS: BP 115/72; PULSE 85; TEMP 36.7; O2SAT 93
[2016-12-03] MEDS: OXYCODONE HCL IR 5 MG TAB (IMMEDIATE RELEASE) PO PRN ×3 (02:19→12:49)
[2016-12-03] MEDS: POLYETHYLENE (MIRALAX) 17 GM PACK PO SCH (06:00)
[2016-12-03] MEDS ORDERED: NURSING VERBAL MED ORDER ONE (06:30)
[2016-12-03 07:21] VITALS: BP 106/68; PULSE 92; TEMP 36.6; O2SAT 98
[2016-12-03 08:16] VITALS: BP 106/68; PULSE 92; TEMP 36.6; O2SAT 98
[2016-12-03] MEDS: BUDESONIDE/FORMOTEROL FUMARATE 80/4.5 60 PUFFS/INHALER INH SCH (08:19)
[2016-12-03] MEDS: PANTOprazole SOD 40 MG TAB PO SCH (08:20)
[2016-12-03] MEDS: INSULIN ASPART 100 UNITS/ML 3 ML PEN SC SCH ×2 (09:01→12:55)
[2016-12-03] MEDS ORDERED: INSULIN GLARGINE SOLOSTAR 100 UNITS/ML 3 ML PEN SC SCH ×2 (12:30→21:00)
[2016-12-03] MEDS ORDERED: METFORMIN HCL 500 MG TAB PO SCH (13:00)
--- NOTE | 2016-12-03 13:22 | Pharmacy Progress Note ---
Glycemic Control: Progress Nt Date of Service Dec 03, 2016. Scope Glycemic Pharmacist consulted by Dr Delatorre on 11/30/16 for glycemic control and to write orders per [facility] inpatient glycemic control protocol. Objective Accuchecks BSG (last 24hrs): Test 12/02/16 20:35 12/03/16 11:45 Bedside Glucose 204 mg/dl (70-99) 233 mg/dl (70-99) HbA1c: Test 12/01/16 05:30 Hemoglobin A1c 6.9 %(4.5-5.6) H Recent Pertinent Medications Outpatient Anti-diabetic Regimen: * Lantus 15 units SQ q PM * Glyburide 10mg PO BID * Metformin 500mg PO QID The patient is currently receiving: * Basal insulin: Lantus 15 units every 24 hours * Correctional Insulin: NovoLog Correction per scale AC/HS Goal Range: Low 110 mg/dL - High 150 mg/dL Correction Factor: 25 mg/dL/unit * Prandial insulin: Per carb ratio of 1 unit per 7 grams CHO consumed * Oral Agents: none at this time Risk Factors for Insulin Resistance: * Recent Surgery: POD #3 * Diet: T2DM/regular Assessment & Plan ASSESSMENT: 12/03/16 * BSGs continue to be significantly above goal range. * Fasting BSG 247mg/dL today * Give additional dose of Lantus today with lunch * May consider increasing Lantus tomorrow based on the effect of today's extra dose * Post-prandial hyperglycemia * lower goal range to 110-140mg/dL to provider additional NovoLog coverage * Add Metformin back to regimen at home dosing * Ordered both T2DM and regular diet * discontinue regular diet PLAN FOR INPATIENT GLYCEMIC CONTROL: * Continue Lantus 15 units SQ q PM * Give additional Lantus 5 units SQ today with lunch * Continue NovoLog AC and HS * Correction factor 25mg/dL/unit * Carb ratio: 1 unit per 7g of CHO consumed * Goal range 110-140mg/dL * A1c current * add to discharge instructions RECOMMENDATIONS FOR DISCHARGE: * Likely, Mr. Payne can continue home regimen if he is not having any hypoglycemia at home * Please note that the plan above was derived based on current level of insulin resistance and hospital stress. These recommendations are appropriate for inpatient admission only. Plan of care upon discharge will need to be reassessed to avoid potential outpatient hypo/hyperglycemia. Thank you.
--- NOTE | 2016-12-14 22:00 | DISCHARGE SUMMARY ---
The patient admitted to the hospital on 11/30/2016 with a preoperative diagnosis of spinal stenosis. He underwent removal of posterior instrumentation L4-L5, L5-S1, exploration of fusion L4-L5 and L5-S1, and lumbar decompression with instrumented fusion L2-L3, L3-L4. On postoperative day 1, the patient's pain was controlled. Leg pain improved. Hematocrit 25.6. He was asymptomatic. Doing well in physical therapy. Postoperative day 2, again continued to do well. Hematocrit 25.2 but stable. Making progress in physical therapy. He was discharged home on postoperative day 4. PAST MEDICAL HISTORY: Significant for rheumatoid arthritis, osteoarthritis, sleep apnea, diabetes, peptic ulcer disease and bleeding disorder. SURGICAL HISTORY: Significant for hernia repair as well as prior lumbar fusion with Dr. Delatorre in 2011. ALLERGIES: None listed. MEDICATIONS UPON DISCHARGE: Per chart review. The patient will follow up in our office in 2 weeks to assess his progress and wound evaluation. Any further questions can be found in chart for review.
== END 2016-12-03 13:53 | disposition home or self-care (01) | DRG 460 ==
LOC: ENRESERVDT → ENRESERVTM → C.ACU 07:50 → C.3E 09:00
PROVIDERS: ADMIT Orthopaedic Surgery Orthopaedic Surgery of the Spine; ATTEND Orthopaedic Surgery Orthopaedic Surgery of the Spine
PROC: 0SG10J1 Fusion of 2 or more Lumbar Vertebral Joints with Synthetic Substitute, Posterior Approach, Posterior Column, Open Approach (ICD-10-PCS; principal; 2016-11-30 10:00)
PROC: 0SP00AZ Removal of Interbody Fusion Device from Lumbar Vertebral Joint, Open Approach (ICD-10-PCS; principal; 2016-11-30 10:00)
PROC: 0SG10A1 (ICD-10-PCS; principal; 2016-11-30 10:00)
PROC: 0QR Lower Bones, Replacement (ICD-10-PCS; principal; 2016-11-30 10:00)
PROC: 3E0U0GB Introduction of Recombinant Bone Morphogenetic Protein into Joints, Open Approach (ICD-10-PCS; principal; 2016-11-30 10:00)
DX: M48.06 Spinal stenosis, lumbar region (principal); M06.9 Rheumatoid arthritis, unspecified; M19.90 Unspecified osteoarthritis, unspecified site; G47.30 Sleep apnea, unspecified; E11.9 Type 2 diabetes mellitus without complications; Z87.891 Personal history of nicotine dependence; Z87.11 Personal history of peptic ulcer disease; Z79.82 Long term (current) use of aspirin